=== PATIENT | female | born 1980 | race Caucasian/White ===

== ENCOUNTER 2016-11-20 05:05 | Inpatient (IN) | payer MEDICAID ==
[~2016-11-20] VITALS: Ht 165.1 cm; Wt 80.4 kg
[~2016-11-20 05:05] MED LIST: NITR-58 PO
[2016-11-20] MEDS ORDERED: OXYTOCIN 30 UNITS/LR 500 ML IV PRN ×2 (06:30→14:30)
[2016-11-20] MEDS ORDERED: OXYTOCIN 30 UNITS/LR 500 ML IV SCH ×2 (06:30)
[2016-11-20] MEDS ORDERED: LIDOCAINE 1% (MPF) 30 ML INJ INJ PRN (06:30)
[2016-11-20] MEDS ORDERED: METHYLERGONOVINE 0.2 MG INJ IM PRN ×2 (06:30→14:30)
[2016-11-20] MEDS ORDERED: CARBOPROST 250 MCG INJ IM PRN ×2 (06:30→14:30)
[2016-11-20] MEDS ORDERED: MISOPROSTOL 200 MCG TAB PR PRN ×2 (06:30→14:30)
[2016-11-20 06:33] VITALS: Ht 165.1 cm; Wt 80.4 kg
[2016-11-20 06:36] LABS: ADD SCAN DIFF NO
[2016-11-20 06:46] LABS: BASOPHILS % 0.2 % (0.0-2.0); EOSINOPHILS # 0.1 10^3/ul (0.0-0.5); EOSINOPHILS % 0.9 % (0.0-7.0); HEMATOCRIT 39.1 % (37.0-47.0); HEMOGLOBIN 13.1 g/dl (12.0-16.0); LYMPHOCYTES # 1.4 10^3/ul (0.8-2.9); LYMPHOCYTES % 13.8 % (15.0-51.0); MEAN CORPUSCULAR HEMOGLOBIN 30.3 pg (29.0-33.0); MEAN CORPUSCULAR HGB CONC 33.5 g/dl (32.0-37.0); MEAN CORPUSCULAR VOLUME 90.3 fl (82.0-101.0); MEAN PLATELET VOLUME 11.8 fl (7.4-10.4); MONOCYTE # 0.6 10^3/ul (0.3-0.9); NEUTROPHIL # 7.9 10^3/ul (1.6-7.5); NEUTROPHILS % 78.6 % (39.0-77.0); PLATELET COUNT 161 10^3/UL (140-415); RED BLOOD COUNT 4.33 10^6/ul (4.20-5.40); RED CELL DISTRIBUTION WIDTH 13.3 % (11.5-14.5); WHITE BLOOD COUNT 10.1 10^3/ul (4.8-10.8)
[2016-11-20 06:47] VITALS: BP 108/76; PULSE 81; RESP 16
[2016-11-20 06:49] LABS: INR 1.01; PROTIME 13.3 Sec (12.2-14.2)
[2016-11-20 06:50] LABS: PARTIAL THROMBOPLASTIN TIME 26.7 Sec (25.0-35.0)
[2016-11-20] MEDS: LACTATED RINGER'S 1,000 ML IV SCH ×3 (06:56→08:26)
[2016-11-20] MEDS ORDERED: CEFAZOLIN 2 GM/50 ML (PMX) 50 ML IVPB ONE (07:30)
[2016-11-20] MEDS ORDERED: ONDANSETRON 4 MG INJ IV STA (07:46)
[2016-11-20] MEDS ORDERED: CITRIC ACID/NA CITRATE 30 ML CUP PO ONE (08:00)
[2016-11-20] MEDS ORDERED: morphine SULFATE/PF (10 MG/10 ML) INJ ONE (08:25)
[2016-11-20] MEDS ORDERED: FENTAnyl 50 MCG/ML VIAL ONE (08:25)
[2016-11-20] MEDS ORDERED: METOCLOPRAMIDE 10 MG INJ ONE (08:26)
[2016-11-20] MEDS ORDERED: OXYTOCIN 30 UNITS/LR 500 ML IV ONE (08:26)
[2016-11-20] MEDS ORDERED: PHENYLephrine (100 MCG/ML) 5ML SYG ONE (09:50)
--- NOTE | 2016-11-20 09:59 | HP ---
Date/Time of Note Date/Time of Note DATE: 11/20/16 TIME: 09:46 OB - History Hx of Present Free Text/Dictation 29 cc old female for exploratory SAB 1 EDC of 11/26/2016 admitted to [facility] with a history of 2 previous section request for bilateral tubal ligation at the time of her section. This patient has been under the care of the [facility] and her course was not complicated with gestational diabetes -induced hypertension or any others surgical medical condition [employer] history menarche at age 11 regular. 28-32 days lasting for 5 days history of 5 pregnancies including depression to previous section one a spontaneous and one induced Allergies denies allergy to any known medication Social habit denies smoking or drinking Review of system within normal Physical examination 5 feet 5 177 pounds total weight gain during the 31 pound Blood pressure 102/66 pulse 74 respirations 15 temperature 97.5 Head ears nose and throat negative Neck supple no thyromegaly Lungs clear to P&A Heart normal sinus rhythm no murmur Abdomen fundal height 37 cm from symphysis pubis with heart rate category 1, scar of previous surgeries Pelvic examination deferred Extremities no edema no varicosities Impression intrauterine at 39 weeks and 1 day, history of 2 previous section request for bilateral tubal ligation Patient has been counseled regarding the procedure and complication may arise from the surgery including bowel , bladder injury infection wound hematoma also Failure rate of tubal ligation increased risk of ectopic future failure to conceive ,patient is willing to go ahead with this procedure Estimated Due Date: Nov 26, 2016 : 5 Para: 2 Spontaneous : 1 Therapeutic : 1 Ultrasounds: Normal mid trimester US Obstetrical Complications: None Medical Complications: None Past Family/Social History * Past Medical, Surgical, Family and Obstetric Histories reviewed from chart. Rubella: immune RPR/VDRL: Negative GBS Status: Negative HBsAG: Negative OB Admission Exam Vital Signs Vital Signs Vital Signs Date Time Temp Pulse Resp B/P Pulse Ox O2 Delivery O2 Flow Rate FiO2 11/20/16 06:47 97.8 81 16 108/76 Room Air Physical Exam HEENT: WNL Heart: Rhythm Normal Lungs: Clear, Equal Abdomen: WNL Extremities: Normal Reflexes: Normal Cervical Dilatation: None Effacement: 0% Station: Ballotable Heart Rate: 130's Accelerations: Accelerations Present Decelerations: No Decelerations Intensity: Mild Last 72 hours Lab Results CBC & BMP 11/20/16 05:35 OB Assessment/Plan Reason for admission: other (2 previous section request for bilateral tubal ligation) SAMMY CAMACHO MD Nov 20, 2016 09:56
[2016-11-20] MEDS ORDERED: ONDANSETRON 4 MG INJ IV PRN (10:30)
[2016-11-20] MEDS ORDERED: HYDROmorphONE 1 MG/ML SYG IV PRN ×2 (10:30)
[2016-11-20] MEDS ORDERED: NALOXONE (0.4 MG/ML) INJ IV PRN (10:30)
[2016-11-20] MEDS ORDERED: DIPHENHYDRAMINE 50 MG INJ IV PRN (10:30)
[2016-11-20] MEDS ORDERED: PROCHLORPERAZINE 10 MG INJ IV PRN (10:30)
[2016-11-20] MEDS: KETOROLAC 30 MG INJ IV PRN ×2 (13:17→23:38)
[2016-11-20 13:55] VITALS: BP 108/64; PULSE 70; RESP 19
[2016-11-20 14:30] VITALS: BP 108/63; PULSE 65; RESP 18
[2016-11-20] MEDS ORDERED: ACETAMINOPHEN/CODEINE #3 TAB PO PRN ×2 (14:30)
[2016-11-20] MEDS ORDERED: OXYCODONE/ACETAMINOPHEN (5/325) TAB PO PRN (14:30)
[2016-11-20] MEDS ORDERED: CEFAZOLIN 1 GM/50 ML (PMX) 50 ML IVPB SCH (14:30)
[2016-11-20] MEDS: GUAIFENESIN/DM 5ML CUP PO PRN ×2 (16:17→21:24)
[2016-11-20] MEDS: OXYTOCIN 30 UNITS/LR 500 ML IV SCH ×2 (16:18→21:26)
[2016-11-20 16:30] VITALS: BP 105/57; PULSE 61; RESP 18
[2016-11-20 19:30] VITALS: BP 102/55; PULSE 82; RESP 18
[2016-11-20] MEDS: SENNA/DOCUSATE NA (8.6MG/50MG) TAB PO SCH (21:00)
[2016-11-20] MEDS: LANOLIN 7 GM TUBE TOP PRN (21:28)
[2016-11-20] MEDS ORDERED: LACTATED RINGER'S 1,000 ML IV SCH (23:00)
[2016-11-20 23:38] VITALS: BP 93/52; PULSE 80; RESP 18
[2016-11-21 04:00] VITALS: BP 90/49; PULSE 85; RESP 18
[2016-11-21] MEDS: IBUPROFEN 600 MG TAB PO SCH ×4 (06:00→23:57)
[2016-11-21 08:20] VITALS: BP 92/67; PULSE 87; RESP 18
[2016-11-21] MEDS: GUAIFENESIN/DM 5ML CUP PO PRN ×3 (08:51→21:16)
[2016-11-21] MEDS: SENNA/DOCUSATE NA (8.6MG/50MG) TAB PO SCH ×2 (08:51→21:16)
[2016-11-21] MEDS: KETOROLAC 30 MG INJ IV PRN (09:06)
[2016-11-21 10:07] LABS: ADD SCAN DIFF NO
[2016-11-21 10:18] LABS: BASOPHILS % 0.3 % (0.0-2.0); EOSINOPHILS # 0.1 10^3/ul (0.0-0.5); EOSINOPHILS % 1.2 % (0.0-7.0); HEMATOCRIT 34.8 % (37.0-47.0); HEMOGLOBIN 11.6 g/dl (12.0-16.0); LYMPHOCYTES % 13.2 % (15.0-51.0); MEAN CORPUSCULAR HEMOGLOBIN 30.8 pg (29.0-33.0); MEAN CORPUSCULAR HGB CONC 33.3 g/dl (32.0-37.0); MEAN CORPUSCULAR VOLUME 92.3 fl (82.0-101.0); MEAN PLATELET VOLUME 11.4 fl (7.4-10.4); MONOCYTE # 0.4 10^3/ul (0.3-0.9); MONOCYTES % 5.1 % (0.0-11.0); NEUTROPHIL # 6.2 10^3/ul (1.6-7.5); NEUTROPHILS % 79.7 % (39.0-77.0); PLATELET COUNT 150 10^3/UL (140-415); RED BLOOD COUNT 3.77 10^6/ul (4.20-5.40); RED CELL DISTRIBUTION WIDTH 13.8 % (11.5-14.5); WHITE BLOOD COUNT 7.7 10^3/ul (4.8-10.8)
[2016-11-21 12:55] VITALS: BP 99/75; PULSE 94; RESP 19
--- NOTE | 2016-11-21 14:01 | PN ---
Date/Time of Note Date/Time of Note DATE: 11/21/16 TIME: 14:00 OB Subjective Subjective Subjective Post day1 Afebrile vital signs are stable abdomen soft bowel sounds present lochia moderate incision dry extremity normal ambulation recommended Laboratory Tests Test 11/21/16 09:35 White Blood Count 7.710^3/ul Red Blood Count 3.7710^6/ul Hemoglobin 11.6g/dl Hematocrit 34.8% Mean Corpuscular Volume 92.3fl Mean Corpuscular Hemoglobin 30.8pg Mean Corpuscular Hemoglobin Concent 33.3g/dl Red Cell Distribution Width 13.8% Platelet Count 61086^3/UL Mean Platelet Volume 11.4fl Neutrophils % 79.7% Lymphocytes % 13.2% Monocytes % 5.1% Eosinophils % 1.2% Basophils % 0.3% Nucleated Red Blood Cells % 0.0/100WBC Neutrophils # 6.210^3/ul Lymphocytes # 1.010^3/ul Monocytes # 0.410^3/ul Eosinophils # 0.110^3/ul Basophils # 0.010^3/ul Nucleated Red Blood Cells # 0.010^3/ul Current Medications Medications (Trade) Dose Ordered Sig/Patel Route PRN Reason Start Time Stop Time Status Last Admin Dose Admin Lactated Ringer's (Lr) 1,000 ml @ 125 mls/hr Q8H IV 11/20/16 06:22 11/20/16 14:25 DC 11/20/16 08:26 Lidocaine 30 ml 30 ml ONCE PRN INJ EPISIOTOMY/TEARING 11/20/16 06:30 11/20/16 14:25 DC Oxytocin/Lactated Ringer's 500 ml @ 125 mls/hr ONCE -MAY REPEAT X1 IV 11/20/16 06:30 11/20/16 14:25 DC 11/20/16 12:19 Oxytocin/Lactated Ringer's 500 ml @ 125 mls/hr ONCE IV 11/20/16 06:30 11/20/16 14:25 DC Oxytocin/Lactated Ringer's 500 ml @ 0 mls/hr ONCE PRN IV For Hemorrhage Management 11/20/16 06:30 11/20/16 14:26 DC Methylergonovine Maleate (Methergine) 0.2 mg ONCE PRN IM VAGINAL BLEEDING 11/20/16 06:30 11/20/16 14:25 DC Carboprost Tromethamine (Hemabate) 250 mcg ONCE PRN IM VAGINAL BLEEDING 11/20/16 06:30 11/20/16 14:25 DC Misoprostol 1000 mcg 1,000 mcg ONCE PRN GA VAGINAL BLEEDING 11/20/16 06:30 11/20/16 14:25 DC Cefazolin Sodium/ Dextrose (Ancef 2 Gm/50 ml (Pmx)) 50 ml @ 100 mls/hr ONCE ONCE IVPB 11/20/16 07:30 11/20/16 07:59 DC Citric Acid/ Sodium Citrate (Bicitra) 30 ml ONCE ONCE PO 11/20/16 08:00 11/20/16 08:01 DC 11/20/16 08:26 Ondansetron HCl (Zofran Inj) 4 mg ONCE STAT IV 11/20/16 07:46 11/20/16 08:01 DC 11/20/16 08:26 Naloxone HCl (Narcan) 0.1 mg Q2M PRN IV FOR RESP RATE 8 OR LESS 11/20/16 10:30 11/21/16 09:44 DC Ketorolac Tromethamine (Toradol) 30 mg Q6H PRN IV PAIN 11/20/16 10:30 11/21/16 09:44 DC 11/21/16 09:06 Hydromorphone HCl (Dilaudid) 0.2 mg Q3H PRN IV PAIN LEVEL 1-5 11/20/16 10:30 11/21/16 09:44 DC Hydromorphone HCl (Dilaudid) 0.4 mg Q3H PRN IV PAIN LEVEL 6-10 11/20/16 10:30 11/21/16 09:44 DC Diphenhydramine HCl (Benadryl) 25 mg Q6H PRN IV ITCHING 11/20/16 10:30 11/21/16 09:44 DC Ondansetron HCl (Zofran Inj) 4 mg Q6H PRN IV NAUSEA AND/OR VOMITING 11/20/16 10:30 11/21/16 09:44 DC Prochlorperazine (Compazine Inj) 10 mg ONCE PRN IV NAUSEA AND/OR VOMITING 11/20/16 10:30 11/21/16 09:44 DC Miscellaneous Information (* Miscellaneous Pharmacy Order) Duramorph: 0.2 mg Spi... GIVEN XX 11/20/16 10:30 Acetaminophen/ Codeine Phosphate (Tylenol No.3) 1 tab Q4H PRN PO PAIN LEVEL 4-6 11/20/16 14:30 Acetaminophen/ Codeine Phosphate (Tylenol No.3) 2 tab Q4H PRN PO PAIN LEVEL 7-10 11/20/16 14:30 Oxycodone/ Acetaminophen (Percocet (5/ 325)) 1 tab Q4H PRN PO PAIN LEVEL 4-6 11/20/16 14:30 Oxycodone/ Acetaminophen (Percocet (5/ 325)) 2 tab Q4H PRN PO PAIN LEVEL 7-10 11/20/16 14:30 Ibuprofen (Motrin) 600 mg Q6 PO 11/21/16 06:00 Simethicone (Mylicon) 160 mg Q8H PRN PO DISTENSION/GAS/BLOATING 11/20/16 14:30 Senna/Docusate Sodium (Senokot-S) 1 tab BID PO 11/20/16 21:00 11/21/16 08:51 Lanolin (Nzu-E-Orlmda) 1 applic BEDSIDE MEDICATION PRN TOP BEDSIDE FOR COREY TO NIPPLES 11/20/16 14:30 11/20/16 21:28 Diphtheria/ Tetanus/Acell Pertussis 0.5 ml 0.5 ml ONCE ONCE IM* 11/23/16 09:00 11/23/16 09:01 Oxytocin/Lactated Ringer's 500 ml @ 0 mls/hr ONCE PRN IV For Hemorrhage Management 11/20/16 14:30 Methylergonovine Maleate (Methergine) 0.2 mg ONCE PRN IM VAGINAL BLEEDING 11/20/16 14:30 Carboprost Tromethamine (Hemabate) 250 mcg ONCE PRN IM VAGINAL BLEEDING 11/20/16 14:30 Misoprostol 1000 mcg 1,000 mcg ONCE PRN GA VAGINAL BLEEDING 11/20/16 14:30 Cefazolin Sodium 50 ml @ 100 mls/hr ONCE IVPB 11/20/16 14:30 11/20/16 14:59 DC 11/20/16 17:42 Oxytocin/Lactated Ringer's 500 ml @ 125 mls/hr Q4H IV 11/20/16 14:22 11/21/16 11:27 DC 11/20/16 21:26 Guaifenesin/ Dextromethorphan (Robitussin Dm Liquid Cup) 5 ml Q4H PRN PO coughing 11/20/16 15:00 11/21/16 08:51 Fentanyl (Sublimaze) 100 mcg STK-MED ONCE .ROUTE 11/20/16 08:25 11/20/16 16:47 DC Morphine Sulfate 10 mg 10 mg STK-MED ONCE .ROUTE 11/20/16 08:25 11/20/16 16:48 DC Oxytocin/Lactated Ringer's 500 ml @ ud STK-MED ONCE IV 11/20/16 08:26 11/20/16 16:48 DC Metoclopramide HCl (Reglan) 10 mg STK-MED ONCE .ROUTE 11/20/16 08:26 11/20/16 16:48 DC Phenylephrine HCl 500 mcg 500 mcg STK-MED ONCE .ROUTE 11/20/16 09:50 11/20/16 16:48 DC Lactated Ringer's (Lr) 1,000 ml @ 125 mls/hr Q8H IV 11/20/16 23:00 11/21/16 11:27 DC 11/21/16 01:18 SAMMY CAMACHO MD Nov 21, 2016 14:01
[2016-11-21] MEDS: OXYCODONE/ACETAMINOPHEN (5/325) TAB PO PRN ×2 (14:17→22:29)
--- NOTE | 2016-11-21 14:34 | OPR ---
DATE OF OPERATION: 11/21/2016 PREOPERATIVE DIAGNOSES: 1. Intrauterine at 39 weeks 1 day gestation. 2. History of 2 previous sections. 3. Request for voluntary sterilization with bilateral tubal ligation. POSTOPERATIVE DIAGNOSES 1. Intrauterine at 39 weeks 1 day gestation. 2. History of 2 previous sections. 3. Request for voluntary sterilization with bilateral tubal ligation. OPERATION PERFORMED: Repeat transverse low cervical section, bilateral tubal ligation, Pom eroy method. SURGEON: Sammy Dominguez MD SOLAR [employer]OVOL[employer]W LEAD: Kinjal Smalls MD ANESTHESIA: Spinal. ANESTHESIOLOGIST: Dr. Chen FINDINGS: Live baby girl, Apgars 9 and 9. Baby weighed 3615 g. DETAILS OF THE PROCEDURE: Under satisfactory spinal anesthesia, the patient was prepped and draped and placed in supine position, tilted to the left. Pfannenstiel incision was made. Old scar was re moved. Incision carried through the subcutaneous tissue. Bleeders brought under control with elect rocautery. Fascia incised to the length of the incision. Rectus muscle divided in midline. Perito neum exposed, entered through a transverse incision. Exploration of abdomen. Gravid uterus, normal -appearing tubes and ovaries. Extremely thinned out lower segment of the uterus. Bladder flap was developed. Transverse incision was made in the lower segment of the uterus. Amniotic sac ruptured. Clear amniotic fluid noted. Live baby girl was delivered from unengaged vertex. Nasal oropharyng eal suction was performed. Baby handed to the team for immediate attention. Patient recei tyree 20 units of Pitocin. Placenta delivered manually intact. Uterine cavity cleaned with wet spong e and drainage established. Uterus closed in 2 layers using Monocryl #1 in continuous fashion. Anthony ateral tubal ligation performed by identifying the right fallopian tube. The ampullar section was g rasped by a Migue. A loop was made. Suture material used, #0 plain catgut which was reinforced w ith the same suture material. The top of the loop 3/4 of inch was excised. The cut end of the tube was cauterized, and the specimen submitted for the pathology. The same procedure performed for the opposite side. Peritoneal cavity irrigated with warm saline. Sponge, needle, and instrument repor flavia to be correct. Abdominal peritoneum closed with 2-0 chromic catgut continuously. Rectus muscle approximated with 3 interrupted 2-0 chromic catgut. Fascia closed with #1 PDS in a continuous fash ion. Subcutaneous tissue approximated with interrupted 2-0 chromic catgut. Skin closed with staple s. Estimated blood loss 600 mL. Urine bag contained 200 mL of clear urine. The patient tolerated procedure well, transferred to recovery room in satisfactory condition. Dictated By: SAMMY MARS/JEANNETTE Conf#: [id number] DID#: [id number]
[2016-11-21 16:00] VITALS: BP 102/77; PULSE 66; RESP 18
[2016-11-21 19:35] VITALS: BP 108/70; PULSE 86; RESP 19
[2016-11-22 03:52] VITALS: BP 110/55; PULSE 75; RESP 19
[2016-11-22] MEDS: OXYCODONE/ACETAMINOPHEN (5/325) TAB PO PRN ×2 (03:52→10:45)
[2016-11-22] MEDS: IBUPROFEN 600 MG TAB PO SCH ×3 (05:43→17:30)
[2016-11-22 07:50] VITALS: BP 99/64; PULSE 71; RESP 17
[2016-11-22] MEDS: SENNA/DOCUSATE NA (8.6MG/50MG) TAB PO SCH ×2 (09:21→21:40)
[2016-11-22] MEDS: GUAIFENESIN/DM 5ML CUP PO PRN ×2 (09:22→19:22)
--- NOTE | 2016-11-22 09:57 | PN ---
Date/Time of Note Date/Time of Note DATE: 11/22/16 TIME: 09:56 OB Subjective Subjective Subjective Post day 2 Afebrile vital signs stable abdomen soft good bowel sounds uterus firm lochia normal no bowel movement extremity normal ambulation encouraged SAMMY CAMACHO MD Nov 22, 2016 09:57
[2016-11-22] MEDS ORDERED: NA PHOSPHATE/BIPHOS 133 ML ENEMA PR ONE ×2 (10:00)
[2016-11-22 16:10] VITALS: BP 106/76; PULSE 80; RESP 19
[2016-11-22 20:15] VITALS: BP 105/65; PULSE 77; RESP 16
[2016-11-23] MEDS: IBUPROFEN 600 MG TAB PO SCH ×4 (00:13→17:41)
[2016-11-23] MEDS: OXYCODONE/ACETAMINOPHEN (5/325) TAB PO PRN (03:56)
[2016-11-23 04:00] VITALS: BP 119/59; PULSE 75; RESP 18
[2016-11-23] MEDS: GUAIFENESIN/DM 5ML CUP PO PRN (05:37)
[2016-11-23 08:05] VITALS: BP 105/68; PULSE 71; RESP 14
[2016-11-23] MEDS ORDERED: DIPHTH/TET/ACEL PERTUSS (ADULT) 0.5 ML VIAL IM* ONE (09:00)
--- NOTE | 2016-11-23 09:50 | DS ---
Date/Time of Note Date/Time of Note DATE: 11/23/16 TIME: 09:48 Obstetrical Discharge Record Final Diagnosis Final Diagnosis: Term delivered Section Section: Repeat Primary Indication Previous section Multiparity She under went a repeat section plus bilateral tubal ligation Current Medications Medications (Trade) Dose Ordered Sig/Patel Route PRN Reason Start Time Stop Time Status Last Admin Dose Admin Lactated Ringer's (Lr) 1,000 ml @ 125 mls/hr Q8H IV 11/20/16 06:22 11/20/16 14:25 DC 11/20/16 08:26 Lidocaine 30 ml 30 ml ONCE PRN INJ EPISIOTOMY/TEARING 11/20/16 06:30 11/20/16 14:25 DC Oxytocin/Lactated Ringer's 500 ml @ 125 mls/hr ONCE -MAY REPEAT X1 IV 11/20/16 06:30 11/20/16 14:25 DC 11/20/16 12:19 Oxytocin/Lactated Ringer's 500 ml @ 125 mls/hr ONCE IV 11/20/16 06:30 11/20/16 14:25 DC Oxytocin/Lactated Ringer's 500 ml @ 0 mls/hr ONCE PRN IV For Hemorrhage Management 11/20/16 06:30 11/20/16 14:26 DC Methylergonovine Maleate (Methergine) 0.2 mg ONCE PRN IM VAGINAL BLEEDING 11/20/16 06:30 11/20/16 14:25 DC Carboprost Tromethamine (Hemabate) 250 mcg ONCE PRN IM VAGINAL BLEEDING 11/20/16 06:30 11/20/16 14:25 DC Misoprostol 1000 mcg 1,000 mcg ONCE PRN PA VAGINAL BLEEDING 11/20/16 06:30 11/20/16 14:25 DC Cefazolin Sodium/ Dextrose (Ancef 2 Gm/50 ml (Pmx)) 50 ml @ 100 mls/hr ONCE ONCE IVPB 11/20/16 07:30 11/20/16 07:59 DC Citric Acid/ Sodium Citrate (Bicitra) 30 ml ONCE ONCE PO 11/20/16 08:00 11/20/16 08:01 DC 11/20/16 08:26 Ondansetron HCl (Zofran Inj) 4 mg ONCE STAT IV 11/20/16 07:46 11/20/16 08:01 DC 11/20/16 08:26 Naloxone HCl (Narcan) 0.1 mg Q2M PRN IV FOR RESP RATE 8 OR LESS 11/20/16 10:30 11/21/16 09:44 DC Ketorolac Tromethamine (Toradol) 30 mg Q6H PRN IV PAIN 11/20/16 10:30 11/21/16 09:44 DC 11/21/16 09:06 Hydromorphone HCl (Dilaudid) 0.2 mg Q3H PRN IV PAIN LEVEL 1-5 11/20/16 10:30 11/21/16 09:44 DC Hydromorphone HCl (Dilaudid) 0.4 mg Q3H PRN IV PAIN LEVEL 6-10 11/20/16 10:30 11/21/16 09:44 DC Diphenhydramine HCl (Benadryl) 25 mg Q6H PRN IV ITCHING 11/20/16 10:30 11/21/16 09:44 DC Ondansetron HCl (Zofran Inj) 4 mg Q6H PRN IV NAUSEA AND/OR VOMITING 11/20/16 10:30 11/21/16 09:44 DC Prochlorperazine (Compazine Inj) 10 mg ONCE PRN IV NAUSEA AND/OR VOMITING 11/20/16 10:30 11/21/16 09:44 DC Miscellaneous Information (* Miscellaneous Pharmacy Order) Duramorph: 0.2 mg Spi... GIVEN XX 11/20/16 10:30 Acetaminophen/ Codeine Phosphate (Tylenol No.3) 1 tab Q4H PRN PO PAIN LEVEL 4-6 11/20/16 14:30 Acetaminophen/ Codeine Phosphate (Tylenol No.3) 2 tab Q4H PRN PO PAIN LEVEL 7-10 11/20/16 14:30 Oxycodone/ Acetaminophen (Percocet (5/ 325)) 1 tab Q4H PRN PO PAIN LEVEL 4-6 11/20/16 14:30 11/23/16 03:56 Oxycodone/ Acetaminophen (Percocet (5/ 325)) 2 tab Q4H PRN PO PAIN LEVEL 7-10 11/20/16 14:30 Ibuprofen (Motrin) 600 mg Q6 PO 11/21/16 06:00 11/23/16 05:33 Simethicone (Mylicon) 160 mg Q8H PRN PO DISTENSION/GAS/BLOATING 11/20/16 14:30 Senna/Docusate Sodium (Senokot-S) 1 tab BID PO 11/20/16 21:00 11/22/16 21:40 Lanolin (Muz-B-Wrkbpm) 1 applic BEDSIDE MEDICATION PRN TOP BEDSIDE FOR COREY TO NIPPLES 11/20/16 14:30 11/20/16 21:28 Diphtheria/ Tetanus/Acell Pertussis 0.5 ml 0.5 ml ONCE ONCE IM* 11/23/16 09:00 11/23/16 09:01 DC Oxytocin/Lactated Ringer's 500 ml @ 0 mls/hr ONCE PRN IV For Hemorrhage Management 11/20/16 14:30 Methylergonovine Maleate (Methergine) 0.2 mg ONCE PRN IM VAGINAL BLEEDING 11/20/16 14:30 Carboprost Tromethamine (Hemabate) 250 mcg ONCE PRN IM VAGINAL BLEEDING 11/20/16 14:30 Misoprostol 1000 mcg 1,000 mcg ONCE PRN PA VAGINAL BLEEDING 11/20/16 14:30 Cefazolin Sodium 50 ml @ 100 mls/hr ONCE IVPB 11/20/16 14:30 11/20/16 14:59 DC 11/20/16 17:42 Oxytocin/Lactated Ringer's 500 ml @ 125 mls/hr Q4H IV 11/20/16 14:22 11/21/16 11:27 DC 11/20/16 21:26 Guaifenesin/ Dextromethorphan (Robitussin Dm Liquid Cup) 5 ml Q4H PRN PO coughing 11/20/16 15:00 11/21/16 14:03 DC 11/21/16 08:51 Fentanyl (Sublimaze) 100 mcg STK-MED ONCE .ROUTE 11/20/16 08:25 11/20/16 16:47 DC Morphine Sulfate 10 mg 10 mg STK-MED ONCE .ROUTE 11/20/16 08:25 11/20/16 16:48 DC Oxytocin/Lactated Ringer's 500 ml @ ud STK-MED ONCE IV 11/20/16 08:26 11/20/16 16:48 DC Metoclopramide HCl (Reglan) 10 mg STK-MED ONCE .ROUTE 11/20/16 08:26 11/20/16 16:48 DC Phenylephrine HCl 500 mcg 500 mcg STK-MED ONCE .ROUTE 11/20/16 09:50 11/20/16 16:48 DC Lactated Ringer's (Lr) 1,000 ml @ 125 mls/hr Q8H IV 11/20/16 23:00 11/21/16 11:27 DC 11/21/16 01:18 Guaifenesin/ Dextromethorphan (Robitussin Dm Liquid Cup) 10 ml Q4H PRN PO coughing 11/21/16 15:00 11/23/16 05:37 Sodium Biphosphate/ Sodium Phosphate (Fleet Enema) 133 ml ONCE ONCE PA 11/22/16 10:00 11/22/16 10:01 DC 11/22/16 10:42 Sodium Biphosphate/ Sodium Phosphate (Fleet Enema) 133 ml ONCE ONCE PA 11/22/16 10:00 11/22/16 10:01 DC Complications Augmentation: No Induction: No Third Trimester Bleeding: Other Rupture of Membranes: No Condition on Discharge Physical Assessment Voiding: Yes Bowel Movement: Yes Breast: Soft, non-tender Fundus: Firm Abdomen and Incision: Healing well the darline will be removed in the office in 3 days Calf Tenderness: No Patient Condition: Good ODIN MEDINA MD Nov 23, 2016 09:50
[2016-11-23] MEDS: LANOLIN 7 GM TUBE TOP PRN (10:26)
[2016-11-23] MEDS: SENNA/DOCUSATE NA (8.6MG/50MG) TAB PO SCH (10:26)
[2016-11-23 16:06] VITALS: BP 118/64; PULSE 74; RESP 16
== END 2016-11-23 18:40 | disposition home or self-care (01) | DRG 766 ==
LOC: L-D 05:05 → PP1 13:55
PROVIDERS: ADMIT Obstetrics & Gynecology; ATTEND Obstetrics & Gynecology
PROC: 10D00Z1 Extraction of Products of Conception, Low, Open Approach (ICD-10-PCS; principal; 2016-11-21)
PROC: 0UL70ZZ Occlusion of Bilateral Fallopian Tubes, Open Approach (ICD-10-PCS; 2016-11-21)
DX: O34.211 Maternal care for low transverse scar from previous cesarean delivery (principal); Z30.2 Encounter for sterilization; Z3A.39 39 weeks gestation of pregnancy; Z37.0 Single live birth
CPT/HCPCS: 85025; 85610; 85730; 86592; 86900; 86901; 88302; 90715; 94760; 99464; J0690; J1885; J2274; J2370; J2405; J2590; J2765; J3010; J7120